=== PATIENT | male | born 1975 | race African-American/Black ===

== ENCOUNTER 2019-04-24 13:06 | Emergency (ER) | payer BC ==
[~2019-04-24] VITALS: Ht 180.3 cm; Wt 88.5 kg
[2019-04-24 13:16] VITALS: BP 144/90
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
[2019-04-24 13:52] VITALS: BP 144/90
== END 2019-04-24 13:53 | disposition home or self-care (01) ==
LOC: EMR 13:50
DX: S06.0X9A Concussion with loss of consciousness of unspecified duration, initial encounter (principal); V49.9XXA Car occupant (driver) (passenger) injured in unspecified traffic accident, initial encounter; Y92.9 Unspecified place or not applicable; I10 Essential (primary) hypertension; F17.200 Nicotine dependence, unspecified, uncomplicated
CPT/HCPCS: 99281